=== PATIENT | female | born 1990 | race Two or more races ===

== ENCOUNTER 2020-06-30 08:16 | Outpatient (CLI) | payer OTHER | END 2020-06-30 09:00 | disposition home or self-care (01) | LOC: RX STUDY 08:16 | PROVIDERS: ATTEND Obstetrics & Gynecology Reproductive Endocrinology | DX: N93.8 Other specified abnormal uterine and vaginal bleeding (principal); Q50.6 Other congenital malformations of fallopian tube and broad ligament; N91.2 Amenorrhea, unspecified ==